=== PATIENT | male | born 1980 | race Caucasian/White ===

== ENCOUNTER 2018-02-19 21:13 | Emergency (ER) | payer SELFPAY ==
--- NOTE | 2018-02-19 22:56 | ULT ---
LEFT LOWER EXTREMITY VENOUS ULTRASOUND: 02/19/18 HISTORY: Left calf edema and pain. TECHNIQUE: Multiplanar barraza scale and color doppler images are obtained in a left lower extremity venous ultraso und. Spectral analysis of the doppler waveforms were performed. FINDINGS: The left common femoral vein, profunda femoral vein, superficial femoral vein, and popliteal vein are normal in appearance without visible thrombus. These vessels demonstrate normal compression, flow an d augmentation. The posterior tibial vein and greater saphenous vein are also patent. IMPRESSION: No evidence of DVT. POS: DANA
== END 2018-02-19 22:58 | disposition home or self-care (01) ==
LOC: ERS 21:13
DX: L03.116 Cellulitis of left lower limb (principal); F17.210 Nicotine dependence, cigarettes, uncomplicated

== ENCOUNTER 2018-11-10 23:14 | Inpatient (IN) | payer SELFPAY ==
[~2018-11-10 23:14] MED LIST: ISOVUE-370 76%-LOCM 1 ML ONE
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
[2018-11-10 23:51] LABS: #Basophils 0.1 thou/uL (0.0-0.2); #Eosinphils 0.4 thou/uL (0.0-0.7); #Lymphocytes 1.2 thou/uL (1.20-3.40); #Monocytes 1.2 thou/uL (0.11-0.59); #Neutrophils 14.5 thou/uL (1.40-6.50); %Basophils 0.4 % (0.0-1.0); %Eosinophils 2.5 % (0.0-10.0); %Lymphocytes 6.9 % (21.0-51.0); %Monocytes 6.6 % (0.0-10.0); %Neutrophils 83.5 % (42.0-75.0); Hemoglobin 12.7 g/dL (14.0-18.0); Mean Corpuscular HGB CONC 33.8 g/dL (32.0-36.0); Mean Corpuscular Hemoglobin 30.5 pg (27.0-31.0); Mean Corpuscular Volume 90.4 fL (78.0-98.0); Mean Platelet Volume 7.4 fL (7.4-10.4); Platelet Count 225 thou/uL (130-400); RBC Distribution Width 12.6 % (11.5-14.5); Red Blood Cell (RBC) Count 4.16 mill/uL (4.70-6.10); White Blood Cell (WBC) Count 17.4 thou/uL (4.8-10.8)
[2018-11-10 23:52] LABS: Acetaminophen Less than 6.0 mcg/mL (10.0-30.0); Alcohol Less than 10 mg/dL (Less than 10); Salicylate Less than 8.0 mg/dL (15.0-30.0)
[2018-11-10 23:54] LABS: ALT (SGPT) 11 U/L (8-55); AST (SGOT) 13 U/L (5-34); Albumin 3.6 g/dL (3.5-5.0); Alkaline Phosphatase 73 U/L (40-150); Anion Gap 13 mmol/L (10-20); BUN (Urea Nitrogen) 18 mg/dL (8.9-20.6); Bilirubin, Total 0.3 mg/dL (0.2-1.2); CK (CPK) 145 U/L (30-200); Calc. Creatinine Clearance 0 mL/min (70-130); Carbon Dioxide 18 mmol/L (22-29); Chloride 112 mmol/L (98-107); Estimated GFR-MDRD 67; Globulin 2.2 g/dL (2.4-3.5); Glucose 92 mg/dL (70-105); Magnesium 2.8 mg/dL (1.6-2.6); Potassium 3.8 mmol/L (3.5-5.1); Protein, Total 5.8 g/dL (6.0-8.3); Sodium 139 mmol/L (136-145)
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
[2018-11-11 00:02] LABS: Actual Bicarbonate (HCO3a) 20.4 mEq/L (22-28); Analyzer IN Cardio ER; Base Excess (BEa) -4.2 mEq/L (-2.0 to +3.0); CO2 Tension 35.9 mmHg (35.0-45.0); Calcium, Ionized 1.12 mmol/L (1.12-1.30); Carboxyhemoglobin (COHb) 1.8 gm% (0.0-3.0); Hemoglobin (Hb) 12.8 g/dL (14.0-18.0); O2 Tension (PaO2) 83.9 mmHg (80.0-100.0); Potassium - ABG Lab 3.51 mmol/L (3.70-5.30); pH, Arterial 7.37 (7.35-7.45)
[2018-11-11 00:06] LABS: ALV-art Gradient 70.865 (0-20); Puncture Site RRA
[2018-11-11 00:28] LABS: CKMB 3.4 ng/mL (0-6.6)
[2018-11-11] MEDS ORDERED: Aspirin Chewable 81 MG TAB ONE (01:39)
[2018-11-11 02:45] LABS: Troponin I 0.286 ng/mL (< 0.028)
[2018-11-11 03:25] LABS: Lactic Acid 3.1 mmol/L (0.5-2.2)
[2018-11-11 05:56] LABS: Troponin I 0.322 ng/mL (< 0.028)
[2018-11-11 06:53] LABS: Amphetamine Detected (NotDetected); Barbiturates Screen Not Detected (NotDetected); Benzodiazepine Screen Not Detected (NotDetected); Cocaine Metabolite Screen Not Detected (NotDetected); Medtox Control Line Valid? VALID (VALID); Medtox Reader # READER 4; Methadone Not Detected (NotDetected); Methamphetamine Detected (NotDetected); Opiate Screen Not Detected (NotDetected); Oxycodone Screen Not Detected (NotDetected); Phencyclidine (PCP) Not Detected (NotDetected); THC/Cannabinoid Screen Detected (NotDetected); Tricyclic Screen Not Detected (NotDetected)
[2018-11-11] MEDS ORDERED: Zolpidem Tartrate 5 MG TAB PO PRN (09:15)
[2018-11-11] MEDS ORDERED: Acetaminophen 325 MG TAB PO PRN (09:15)
[2018-11-11] MEDS ORDERED: Ondansetron PF 4 MG/2 ML Vial IVP PRN (09:15)
[2018-11-11] MEDS ORDERED: Nicotine 14 MG PATCH TD SCH (13:15)
[2018-11-11] MEDS ORDERED: Nicotine 14 MG PATCH ONE (13:34)
--- NOTE | 2018-11-11 15:18 | PDOC.EVN ---
Event Note - Event Note Event Note: H&P #[id number]
--- NOTE | 2018-11-11 15:52 | HP ---
CHIEF COMPLAINT: Chest pain, delirium. HISTORY OF PRESENT ILLNESS: This is a 38-year-old male, who came with significant hypertension, tachycardia, was found to have elevated troponin, high lactic acid of 3.1, was also found to have methamphetamines, benzodiazepines, and cannabis in his urine drug screen. The patient stated that he did it. The patient states that he does not have any other associated symptoms or complaints. No alleviating or aggravating factors noted. The patient states that in the past, he has done drugs before as well because of things that are he is going through in life. The patient otherwise has no other complaints, no issues. Seen and examined in the emergency room. No family at bedside. All questions answered. PAST MEDICAL HISTORY: Drug abuse and drug addiction. SOCIAL HISTORY: Does participate in alcohol and illicit drug use. PHYSICAL EXAMINATION: VITAL SIGNS: Blood pressure is 168/88, heart rate of 80, temperature of 98.2, O2 saturations 100% on room air. GENERAL: The patient is lying in bed, in no acute discomfort. Well developed. HEENT: NC/AT. Pupils are equal, round, and reactive to light and accommodation. Extraocular muscles are intact. Oral cavity, moist and pink. NECK: Supple with mobile and nontender thyroid appreciated. CARDIOVASCULAR: Regular rate and rhythm. S1 and S2. No murmurs, rubs, or gallops. PULMONARY: Clear to auscultation bilaterally. No rales, rhonchi, or wheezing. ABDOMEN: Positive bowel sounds. Soft, nontender, nondistended. EXTREMITIES: 2+ peripheral pulses noted. No cyanosis, clubbing, or edema. NEUROLOGIC: Cranial nerves 2 through 12 are intact. No loss of motor or sensory function. LABORATORY DATA: Reviewed. ASSESSMENT: 1. Leukocytosis. 2. Troponinemia. 3. Lactic acidosis. 4. Drug abuse with positive urine drug screen. PLAN: At this point in time, we will admit the patient to our internal Medicine Team. We will start the patient on some IV fluids and supportive care. We will start the patient on Lovenox 60 mg twice a day along with aspirin and statin. Consult Cardiology. Echocardiogram performed. We will also do blood culture and urine culture as well as labs in the morning. If the patient's white blood cell count is better, we will likely consider discharging the patient if the patient is stable from a cardiac perspective as well. Case and plan were discussed with the patient at length. He understood and agreed with this plan. Job ID: [id number]
[2018-11-11 17:31] VITALS: BMI 34.0
[2018-11-11] MEDS: Famotidine 20 MG TAB PO SCH (19:53)
[2018-11-11] MEDS: Enoxaparin Sodium 60 MG/0.6 ML SYRINGE SC SCH (19:53)
[2018-11-11] MEDS ORDERED: Atorvastatin Calcium 40 MG TAB PO SCH (21:00)
[2018-11-12 04:25] VITALS: TEMP 97.3
[2018-11-12 05:17] LABS: #Basophils 0.1 thou/uL (0.0-0.2); #Eosinphils 0.9 thou/uL (0.0-0.7); #Lymphocytes 2.4 thou/uL (1.20-3.40); #Monocytes 0.8 thou/uL (0.11-0.59); #Neutrophils 3.8 thou/uL (1.40-6.50); %Basophils 1.3 % (0.0-1.0); %Eosinophils 11.5 % (0.0-10.0); %Monocytes 9.7 % (0.0-10.0); %Neutrophils 47.6 % (42.0-75.0); Hemoglobin 12.8 g/dL (14.0-18.0); Mean Corpuscular HGB CONC 33.6 g/dL (32.0-36.0); Mean Corpuscular Hemoglobin 30.7 pg (27.0-31.0); Mean Corpuscular Volume 91.4 fL (78.0-98.0); Mean Platelet Volume 7.6 fL (7.4-10.4); Platelet Count 195 thou/uL (130-400); RBC Distribution Width 12.9 % (11.5-14.5); Red Blood Cell (RBC) Count 4.17 mill/uL (4.70-6.10)
[2018-11-12 05:41] LABS: Anion Gap 11 mmol/L (10-20); BUN (Urea Nitrogen) 14 mg/dL (8.9-20.6); Calc. Creatinine Clearance 177 mL/min (70-130); Calcium 8.2 mg/dL (7.8-10.44); Carbon Dioxide 24 mmol/L (22-29); Chloride 110 mmol/L (98-107); Estimated GFR-MDRD Greater than 90; Glucose 98 mg/dL (70-105); Potassium 4.1 mmol/L (3.5-5.1); Sodium 141 mmol/L (136-145)
[2018-11-12] MEDS ORDERED: Aspirin 81 mg Enteric Coated Tablet PO SCH (09:00)
[2018-11-12 10:07] VITALS: BP 114/70
[2018-11-12] MEDS: Enoxaparin Sodium 60 MG/0.6 ML SYRINGE SC SCH (10:08)
[2018-11-12] MEDS: Famotidine 20 MG TAB PO SCH (10:10)
--- NOTE | 2018-11-12 11:08 | EKG ---
Test Reason : Blood Pressure : / mmHG Vent. Rate : 085 BPM Atrial Rate : 085 BPM P-R Int : 152 ms QRS Dur : 110 ms QT Int : 370 ms P-R-T Axes : 053 020 025 degrees QTc Int : 440 ms Normal sinus rhythm Incomplete right bundle branch block Borderline ECG Confirmed by SARIKA BUENO ([id number]), food expeditor HERBERTH BENITO ([id number]) on 11/12/2018 11:08:44 AM Referred By: Confirmed By:SARIKA BUENO
--- NOTE | 2018-11-12 15:01 | PDOC.EVN ---
Event Note - Event Note Event Note: DC SUMMARY #[id number]
--- NOTE | 2018-11-12 18:57 | DIS ---
DATE OF ADMISSION: 11/11/2018 DATE OF DISCHARGE: 11/12/2018 ADMITTING DIAGNOSES: Hypertension; coronary artery disease; leukocytosis; multiple drug abuse from amphetamines, methamphetamines, and cannabis. DISCHARGE DIAGNOSES: Coronary artery disease. Multiple drug abuse from amphetamines, methamphetamines, and cannabis. Hypertension, resolved. Leukocytosis, resolved. Elevated troponin, stable. Chest pain, resolved. Drug abuse. HOSPITAL COURSE: This is a 38-year-old male, admitted to Internal Medicine Team drug abuse with drugs that were taken listed in admitting diagnoses, methamphetamines, cocaine as well as cannabis. The patient was observed for 24 hours, had significantly noted improvement in his condition. Upon time of discharge, the patient denies any nausea, vomiting, diarrhea, constipation, chest pain, fevers, chills, or shortness of breath. The patient states that he has improved considerably. White count and vital signs are stable upon the time of discharge. The patient was advised to stop doing drugs. Advised to follow up with PCP within 1 to 2 weeks for repeat laboratory workup and follow up outpatient for further medical management and care. At point in time of discharge, again, the patient was stable. Case and plan discussed with the patient at length. He understood and agreed with this plan. DISPOSITION: Home. Follow up with PCP within 1 to 2 weeks. MEDICATIONS: See MAR. ACTIVITY: As tolerated with assistance as needed. DIET: Low-fat, low-calorie, high-fiber diet. CONDITION: Stable. PROGNOSIS: Good. Once again, case and plan discussed with the patient at length. He understood and agreed with this plan. Job ID: [id number]
== END 2018-11-12 13:20 | disposition home or self-care (01) | DRG 897 ==
LOC: ERS 23:14 → ERHOLD 11-11 01:44 → 2NO 11-11 17:45
PROVIDERS: ADMIT Hospitalist; ATTEND Hospitalist
DX: F15.10 Other stimulant abuse, uncomplicated (principal); E87.2 Acidosis; I10 Essential (primary) hypertension; I25.10 Atherosclerotic heart disease of native coronary artery without angina pectoris; F12.10 Cannabis abuse, uncomplicated; D72.829 Elevated white blood cell count, unspecified; R07.9 Chest pain, unspecified; R77.8 Other specified abnormalities of plasma proteins
CPT/HCPCS: 36415; 70450; 71260; 72125; 74177; 80048; 80306; 80307; 82553; 82805; 83605; 83735; 83880; 84443; 84484; 85025; 87040; 87086; 93005; 93306; 94640; 94760; J1650; J3370; J7620; Q9966